=== PATIENT | female | born 1965 | race Two or more races ===

== ENCOUNTER 2021-02-10 11:45 | Inpatient (IN) | payer OTHER ==
[~2021-02-10] VITALS: Ht 152.4 cm; Wt 52.2 kg
[2021-02-10] MEDS ORDERED: XELJANZ XR11 MG PO (15:49)
[2021-02-16] MEDS ORDERED: KETOROLAC TROME10 MG (16:39)
[2021-02-16] MEDS ORDERED: PROGESTERONE200 MG (16:39)
== END 2021-02-17 10:28 | disposition home or self-care (01) | DRG 741 ==
LOC: O/R 02-16 07:00 → OB/GYN 02-16 11:45
PROVIDERS: ADMIT Obstetrics & Gynecology Gynecologic Oncology; ATTEND Obstetrics & Gynecology Gynecologic Oncology
PROC: 0UT24ZZ Resection of Bilateral Ovaries, Percutaneous Endoscopic Approach (ICD-10-PCS; 2021-02-16)
PROC: 0UT74ZZ Resection of Bilateral Fallopian Tubes, Percutaneous Endoscopic Approach (ICD-10-PCS; 2021-02-16)
PROC: 07BC4ZZ Excision of Pelvis Lymphatic, Percutaneous Endoscopic Approach (ICD-10-PCS; 2021-02-16)
PROC: 0UT94ZZ Resection of Uterus, Percutaneous Endoscopic Approach (ICD-10-PCS; principal; 2021-02-16 23:15)
DX: C54.1 Malignant neoplasm of endometrium (principal); N72 Inflammatory disease of cervix uteri; N80.0 Endometriosis of uterus

== ENCOUNTER 2023-07-24 07:20 | Outpatient (CLI) | payer OTHER ==
[~2023-07-24 07:20] MED LIST: KETOROLAC TROME10 MG; PROGESTERONE200 MG; XELJANZ XR11 MG PO
== END 2023-07-24 07:51 | disposition home or self-care (01) ==
LOC: NUCLEAR 07:20
PROVIDERS: ATTEND Internal Medicine Rheumatology
DX: M05.79 Rheumatoid arthritis with rheumatoid factor of multiple sites without organ or systems involvement (principal)

== ENCOUNTER 2024-03-26 09:16 | Outpatient (CLI) | payer OTHER | END 2024-03-26 09:22 | disposition home or self-care (01) | LOC: SONOGRAMA 09:16 | DX: M65.9 Synovitis and tenosynovitis, unspecified (principal) ==